=== PATIENT | female | born 1970 | race African-American/Black ===

== ENCOUNTER 2016-08-17 15:06 | Emergency (ER) | payer BC ==
[~2016-08-17] VITALS: Ht 172.7 cm; Wt 74.4 kg
[2016-08-17 15:43] LABS: MCH 30.6 PG (29.0-34.0); MCV 89.9 FL (83-99); RBC DIS.WIDTH-CV 13.1 % (11.8-14.6); RED BLOOD COUNT 4.67 M/uL (3.80-5.20); WHITE BLOOD COUNT 6.4 K/uL (4.1-10.2)
[2016-08-17 15:59] LABS: CHLORIDE 106 mEq/L (99-109); POTASSIUM 3.7 mEq/L (3.7-5.4); SODIUM 139 mEq/L (136-147)
[2016-08-17 16:02] LABS: GLUCOSE 102 mg/dL (70-99)
[2016-08-17 16:03] LABS: ANION GAP 13 MEQ/L (2-14)
[2016-08-17 16:05] LABS: ALKALINE PHOSPHATASE 66 IU/L (3-129); GFR ESTIMATE (CALCULATED) > 59 mL/min/
[2016-08-17 16:06] LABS: UREA NITROGEN (BUN) 12 mg/dL (9-23)
[2016-08-17 16:14] LABS: QUANTITATIVE HCG 4.6 MIU/ML
[2016-08-17 16:40] LABS: HEMATOLOGY COMMENT 1 SN; MEAN PLAT.VOLUME 12.3 uM^3 (9.5-12.4); PLAT.SUFFICIENCY ADEQUATE; PLATELET COUNT 226 K/uL (156-360)
[2016-08-17] MEDS ORDERED: FLEET ENEMA-AD118 ML PR (17:21)
[2016-08-17] MEDS ORDERED: CITRATE OF MAG296 ML PO (17:21)
[2016-08-17 17:46] VITALS: BP 124/87
== END 2016-08-17 17:47 | disposition home or self-care (01) ==
LOC: EME 15:06
DX: K59.00 Constipation, unspecified (principal); K21.9 Gastro-esophageal reflux disease without esophagitis; Z90.49 Acquired absence of other specified parts of digestive tract
CPT/HCPCS: 74020; 80053; 81003; 84702; 85027; 99281; 99283